=== PATIENT | male | born 1985 | race Two or more races ===

== ENCOUNTER 2019-08-02 14:31 | Inpatient (IN) | payer OTHER ==
[~2019-08-02] VITALS: Ht 165.1 cm; Wt 54.4 kg
[2019-08-02] MEDS ORDERED: ONDANSETRON HCL 4 MG/2 ML VIAL IVP PRN (15:00)
[2019-08-02] MEDS ORDERED: 0.9% SODIUM CHLORIDE 10 ML SYRINGE IVP PRN ×2 (15:00→22:00)
[2019-08-02] MEDS ORDERED: ACETAMINOPHEN 325 MG TABLET PO PRN (15:00)
[2019-08-02] MEDS ORDERED: HYDROCORTISONE 1% 30 GM OINTMENT TP ONE (15:00)
[2019-08-02] MEDS ORDERED: DiphenhydrAMINE HCL 25 MG CAPSULE PO ONE (15:00)
[2019-08-02 15:13] LABS: BASOPHILS % (AUTO) 0.1 % (0.0-2.0); EOSINOPHILS % (AUTO) 3.6 % (1.0-6.0); HEMATOCRIT 34.8 % (41-53); HEMOGLOBIN 11.6 g/dL (13.5-17.5); LYMPHOCYTES # (AUTO) 0.6 K/uL (1.0-4.8); LYMPHOCYTES % (AUTO) 11.6 % (22.0-44.0); MEAN CORPUSCULAR HEMOGLOBIN 27.7 pg (26.0-34.0); MEAN CORPUSCULAR HGB CONC 33.3 G/dL (31.0-37.0); MEAN CORPUSCULAR VOLUME 83 fL (80-100); MONOCYTES # (AUTO) 0.4 K/uL (0.1-1.0); NEUTROPHILS # (AUTO) 4.2 K/uL (1.8-7.7); NEUTROPHILS % (AUTO) 77.7 % (40.0-70.0); PLATELET COUNT (AUTO) 301 K/uL (150-450); RED BLOOD CELL COUNT(AUTO) 4.17 MIL/uL (4.50-5.90); RED CELL DISTRIBUTION WIDTH 15.7 % (11.5-14.5)
[2019-08-02 15:28] LABS: ANION GAP 6 mmol/L (8-16); CALCIUM, TOTAL 8.3 mg/dL (8.8-10.5); CARBON DIOXIDE 27 mmol/L (22-29); CHLORIDE 106 mmol/L (98-107); CREATININE 0.75 mg/dL (0.60-1.30); GLOMERULAR FILTR. RATE CALC > 60 mL/min (>60); GLUCOSE,RANDOM 82 mg/dL (70-110); POTASSIUM 3.7 mmol/L (3.5-5.1); SODIUM SERUM 139 mmol/L (136-145); UREA NITROGEN, BLOOD 5 mg/dL (7-18)
[2019-08-02 15:41] LABS: ALANINE AMINOTRANSFERASE 45 U/L (12-78); ALKALINE PHOSPHATASE 120 U/L (46-116); ASPARTATE AMINOTRANSFERASE 49 U/L (15-37); BILIRUBIN,TOTAL 0.3 mg/dL (0.1-1.0); TOTAL PROTEIN, SERUM 9.8 g/dL (6.4-8.2)
[2019-08-02 15:43] VITALS: BP 113/71
[2019-08-02] MEDS ORDERED: PNEUMOCOCCAL VACCINE POLYVALENT 0.5 ML VIAL [PPSV23] IM ONE (15:45)
[2019-08-02] MEDS ORDERED: INFLUENZA VIRUS VACCINE QVS 2019-20 (3YR+)/PF 60 MCG/0.5 ML SYRINGE IM ONE (15:45)
[2019-08-02 19:55] VITALS: BP 96/51
[2019-08-02] MEDS ORDERED: ZOLPIDEM TARTRATE 5 MG TABLET PO PRN (22:00)
[2019-08-02] MEDS: HEPARIN SODIUM,PORCINE 5,000 UNITS/ML VIAL SQ SCH (22:28)
[2019-08-02] MEDS: CIMETIDINE 400 MG TABLET PO SCH (22:29)
[2019-08-02] MEDS: SODIUM CHLORIDE 0.9% 1,000 ML IV SCH (22:30)
[2019-08-02 23:57] VITALS: BP 95/55
[2019-08-03 04:00] VITALS: BP 91/55
[2019-08-03 05:33] LABS: BASOPHILS % (AUTO) 0.5 % (0.0-2.0); EOSINOPHILS % (AUTO) 5.9 % (1.0-6.0); HEMATOCRIT 34.1 % (41-53); HEMOGLOBIN 11.3 g/dL (13.5-17.5); LYMPHOCYTES # (AUTO) 0.7 K/uL (1.0-4.8); LYMPHOCYTES % (AUTO) 11.1 % (22.0-44.0); MEAN CORPUSCULAR HEMOGLOBIN 27.6 pg (26.0-34.0); MEAN CORPUSCULAR HGB CONC 33.1 G/dL (31.0-37.0); MEAN CORPUSCULAR VOLUME 83 fL (80-100); MONOCYTES # (AUTO) 0.5 K/uL (0.1-1.0); MONOCYTES % (AUTO) 8.8 % (2.0-9.0); NEUTROPHILS # (AUTO) 4.4 K/uL (1.8-7.7); NEUTROPHILS % (AUTO) 73.7 % (40.0-70.0); PLATELET COUNT (AUTO) 279 K/uL (150-450); RED BLOOD CELL COUNT(AUTO) 4.09 MIL/uL (4.50-5.90)
[2019-08-03 05:49] LABS: ALANINE AMINOTRANSFERASE 41 U/L (12-78); ALBUMIN 2.8 g/dL (3.4-5.0); ALKALINE PHOSPHATASE 113 U/L (46-116); ANION GAP 4 mmol/L (8-16); ASPARTATE AMINOTRANSFERASE 48 U/L (15-37); BILIRUBIN,TOTAL 0.3 mg/dL (0.1-1.0); CALCIUM, TOTAL 8.1 mg/dL (8.8-10.5); CARBON DIOXIDE 25 mmol/L (22-29); CHLORIDE 107 mmol/L (98-107); CREATININE 0.73 mg/dL (0.60-1.30); GLOMERULAR FILTR. RATE CALC > 60 mL/min (>60); GLUCOSE,RANDOM 82 mg/dL (70-110); POTASSIUM 3.4 mmol/L (3.5-5.1); SODIUM SERUM 136 mmol/L (136-145); TOTAL PROTEIN, SERUM 9.3 g/dL (6.4-8.2); UREA NITROGEN, BLOOD 10 mg/dL (7-18)
[2019-08-03 07:35] VITALS: BP 104/62
[2019-08-03] MEDS: DOCUSATE SODIUM 100 MG CAPSULE PO SCH ×2 (08:30→20:52)
[2019-08-03] MEDS: HEPARIN SODIUM,PORCINE 5,000 UNITS/ML VIAL SQ SCH ×3 (08:30→23:59)
[2019-08-03] MEDS: CIMETIDINE 400 MG TABLET PO SCH ×2 (08:31→20:40)
[2019-08-03] MEDS ORDERED: POTASSIUM CHLORIDE 20 MEQ ER TABLET PO PRN (10:45)
[2019-08-03] MEDS ORDERED: POTASSIUM CHL 10 MEQ/WATER 50 ML IV PRN (10:45)
[2019-08-03] MEDS ORDERED: PredniSONE 5 MG TABLET PO ONE (11:00)
[2019-08-03 11:25] VITALS: BP 104/54
[2019-08-03] MEDS: SODIUM CHLORIDE 0.9% 1,000 ML IV SCH (12:36)
[2019-08-03 16:04] VITALS: BP 98/58
[2019-08-03 20:27] VITALS: BP 104/67
[2019-08-03] MEDS: ACETAMINOPHEN 325 MG TABLET PO PRN (20:44)
[2019-08-03 23:46] VITALS: BP 96/54
[2019-08-04] MEDS: SODIUM CHLORIDE 0.9% 1,000 ML IV SCH ×2 (02:36→18:45)
[2019-08-04 04:40] VITALS: BP 101/67
[2019-08-04 07:32] VITALS: BP 110/66
[2019-08-04] MEDS: HEPARIN SODIUM,PORCINE 5,000 UNITS/ML VIAL SQ SCH ×3 (08:53→23:59)
[2019-08-04] MEDS: DOCUSATE SODIUM 100 MG CAPSULE PO SCH ×2 (08:53→08:58)
[2019-08-04] MEDS: CIMETIDINE 400 MG TABLET PO SCH ×2 (08:55→20:11)
[2019-08-04 11:29] VITALS: BP 103/70
[2019-08-04 15:52] VITALS: BP 106/67
[2019-08-04 19:29] VITALS: BP 105/56
[2019-08-04] MEDS: BACITRACIN 28.4 GM OINTMENT TP SCH (20:07)
[2019-08-04 23:52] VITALS: BP 99/55
[2019-08-05] MEDS: ACETAMINOPHEN 325 MG TABLET PO PRN (04:06)
[2019-08-05 04:10] VITALS: BP 107/70
[2019-08-05] MEDS: HEPARIN SODIUM,PORCINE 5,000 UNITS/ML VIAL SQ SCH ×3 (08:31→23:18)
[2019-08-05] MEDS: CIMETIDINE 400 MG TABLET PO SCH ×2 (08:31→21:24)
[2019-08-05] MEDS: BACITRACIN 28.4 GM OINTMENT TP SCH ×2 (08:32→23:19)
[2019-08-05] MEDS: DOCUSATE SODIUM 100 MG CAPSULE PO SCH ×2 (08:33→21:00)
[2019-08-05] MEDS: SODIUM CHLORIDE 0.9% 1,000 ML IV SCH ×2 (09:29→23:18)
[2019-08-05 11:07] VITALS: BP 104/56
[2019-08-05 15:39] VITALS: BP 101/57
[2019-08-05] MEDS ORDERED: ACYCLOVIR 200 MG CAPSULE PO SCH (16:00)
[2019-08-05 20:10] VITALS: BP 115/59
[2019-08-05] MEDS: CETIRIZINE HCL 10 MG TABLET PO SCH (21:22)
[2019-08-05] MEDS: ACYCLOVIR 200 MG CAPSULE PO SCH (21:23)
[2019-08-05 22:48] VITALS: BP 120/85
[2019-08-06] MEDS: ACYCLOVIR 200 MG CAPSULE PO SCH ×5 (01:21→19:29)
[2019-08-06 04:00] VITALS: BP 118/82
[2019-08-06 07:32] VITALS: BP 114/64
[2019-08-06] MEDS: CETIRIZINE HCL 10 MG TABLET PO SCH (08:40)
[2019-08-06] MEDS: DOCUSATE SODIUM 100 MG CAPSULE PO SCH ×2 (08:40→21:07)
[2019-08-06] MEDS: HEPARIN SODIUM,PORCINE 5,000 UNITS/ML VIAL SQ SCH ×2 (08:40→16:54)
[2019-08-06] MEDS: BACITRACIN 28.4 GM OINTMENT TP SCH ×2 (08:41→21:07)
[2019-08-06] MEDS: CIMETIDINE 400 MG TABLET PO SCH ×2 (08:41→21:07)
[2019-08-06 11:59] VITALS: BP 115/68
[2019-08-06] MEDS: SODIUM CHLORIDE 0.9% 1,000 ML IV SCH (13:13)
[2019-08-06] MEDS ORDERED: PERMETHRIN 5% 60 GM CREAM TP ONE (16:00)
[2019-08-06 16:11] VITALS: BP 103/60
[2019-08-06 20:04] VITALS: BP 104/68
[2019-08-06 23:30] VITALS: BP 108/66
[2019-08-07] MEDS: ACYCLOVIR 200 MG CAPSULE PO SCH ×5 (00:04→18:47)
[2019-08-07] MEDS: HEPARIN SODIUM,PORCINE 5,000 UNITS/ML VIAL SQ SCH ×3 (00:04→16:08)
[2019-08-07 04:00] VITALS: BP 110/69
[2019-08-07] MEDS: SODIUM CHLORIDE 0.9% 1,000 ML IV SCH ×2 (04:58→18:47)
[2019-08-07] MEDS: ACETAMINOPHEN 325 MG TABLET PO PRN (05:02)
[2019-08-07 06:58] LABS: BASOPHILS % (AUTO) 0.2 % (0.0-2.0); EOSINOPHILS % (AUTO) 4.1 % (1.0-6.0); HEMATOCRIT 33.7 % (41-53); HEMOGLOBIN 11.3 g/dL (13.5-17.5); LYMPHOCYTES # (AUTO) 1.1 K/uL (1.0-4.8); LYMPHOCYTES % (AUTO) 19.1 % (22.0-44.0); MEAN CORPUSCULAR HEMOGLOBIN 27.9 pg (26.0-34.0); MEAN CORPUSCULAR HGB CONC 33.5 G/dL (31.0-37.0); MEAN CORPUSCULAR VOLUME 83 fL (80-100); MONOCYTES # (AUTO) 0.3 K/uL (0.1-1.0); MONOCYTES % (AUTO) 6.2 % (2.0-9.0); NEUTROPHILS % (AUTO) 70.4 % (40.0-70.0); PLATELET COUNT (AUTO) 318 K/uL (150-450); RED BLOOD CELL COUNT(AUTO) 4.05 MIL/uL (4.50-5.90); RED CELL DISTRIBUTION WIDTH 15.8 % (11.5-14.5)
[2019-08-07 07:31] LABS: ALANINE AMINOTRANSFERASE 90 U/L (12-78); ALBUMIN 2.8 g/dL (3.4-5.0); ALKALINE PHOSPHATASE 141 U/L (46-116); ANION GAP 9 mmol/L (8-16); ASPARTATE AMINOTRANSFERASE 116 U/L (15-37); BILIRUBIN,TOTAL 0.3 mg/dL (0.1-1.0); CALCIUM, TOTAL 8.1 mg/dL (8.8-10.5); CARBON DIOXIDE 22 mmol/L (22-29); CHLORIDE 103 mmol/L (98-107); CREATININE 0.87 mg/dL (0.60-1.30); GLOMERULAR FILTR. RATE CALC > 60 mL/min (>60); GLUCOSE,RANDOM 81 mg/dL (70-110); POTASSIUM 3.8 mmol/L (3.5-5.1); SODIUM SERUM 134 mmol/L (136-145); TOTAL PROTEIN, SERUM 9.6 g/dL (6.4-8.2); UREA NITROGEN, BLOOD 4 mg/dL (7-18)
[2019-08-07] MEDS: DOCUSATE SODIUM 100 MG CAPSULE PO SCH ×2 (07:52→20:40)
[2019-08-07] MEDS: CETIRIZINE HCL 10 MG TABLET PO SCH (07:53)
[2019-08-07] MEDS: CIMETIDINE 400 MG TABLET PO SCH ×2 (07:53→20:40)
[2019-08-07] MEDS: BACITRACIN 28.4 GM OINTMENT TP SCH ×2 (07:54→20:40)
[2019-08-07 08:01] LABS: APPEARANCE,URINE CLEAR (CLEAR); BILIRUBIN,URINE NEGATIVE (NEGATIVE); GLUCOSE, URINE (UA) NEGATIVE (NEGATIVE); KETONES,URINE NEGATIVE (NEGATIVE); LEUKOCYTE ESTERASE ,URINE NEGATIVE (NEGATIVE); NITRATE,URINE NEGATIVE (NEGATIVE); OCCULT BLOOD,URINE NEGATIVE (NEGATIVE); PROTEIN,URINE NEGATIVE (NEGATIVE); UROBILINOGEN,URINE 0.2 mg/dL (<=1.0)
[2019-08-07 08:44] VITALS: BP 107/63
[2019-08-07 11:35] VITALS: BP 105/62
[2019-08-07 16:30] VITALS: BP 104/61
[2019-08-07 21:06] VITALS: BP 104/57
[2019-08-08] VITALS (7 sets, daily range): BP systolic 100–120; BP diastolic 60–79
[2019-08-08] MEDS: ACYCLOVIR 200 MG CAPSULE PO SCH ×6 (00:10→23:21)
[2019-08-08] MEDS: HEPARIN SODIUM,PORCINE 5,000 UNITS/ML VIAL SQ SCH ×4 (00:10→23:21)
[2019-08-08] MEDS: TRIAMCINOLONE 0.1% 15 GM CREAM TP PRN ×2 (00:10→08:12)
[2019-08-08] MEDS: HydrOXYzine HCL 25 MG TABLET PO PRN (03:10)
[2019-08-08] MEDS: CETIRIZINE HCL 10 MG TABLET PO SCH (08:08)
[2019-08-08] MEDS: CIMETIDINE 400 MG TABLET PO SCH ×2 (08:08→20:20)
[2019-08-08] MEDS: DOCUSATE SODIUM 100 MG CAPSULE PO SCH ×3 (08:18→20:26)
[2019-08-08] MEDS: SODIUM CHLORIDE 0.9% 1,000 ML IV SCH ×2 (08:18→23:21)
[2019-08-08] MEDS: BACITRACIN 28.4 GM OINTMENT TP SCH ×2 (08:23→20:20)
[2019-08-08] MEDS: ACETAMINOPHEN 325 MG TABLET PO PRN (23:21)
[2019-08-09 04:33] VITALS: BP 105/68
[2019-08-09] MEDS: ACYCLOVIR 200 MG CAPSULE PO SCH ×5 (05:46→21:18)
[2019-08-09 06:37] LABS: BASOPHILS % (AUTO) 0.3 % (0.0-2.0); EOSINOPHILS % (AUTO) 10.1 % (1.0-6.0); HEMATOCRIT 33.8 % (41-53); HEMOGLOBIN 11.2 g/dL (13.5-17.5); LYMPHOCYTES # (AUTO) 0.8 K/uL (1.0-4.8); LYMPHOCYTES % (AUTO) 16.6 % (22.0-44.0); MEAN CORPUSCULAR HEMOGLOBIN 27.8 pg (26.0-34.0); MEAN CORPUSCULAR HGB CONC 33.1 G/dL (31.0-37.0); MEAN CORPUSCULAR VOLUME 84 fL (80-100); MONOCYTES # (AUTO) 0.4 K/uL (0.1-1.0); MONOCYTES % (AUTO) 9.1 % (2.0-9.0); NEUTROPHILS % (AUTO) 63.9 % (40.0-70.0); PLATELET COUNT (AUTO) 286 K/uL (150-450); RED BLOOD CELL COUNT(AUTO) 4.03 MIL/uL (4.50-5.90); RED CELL DISTRIBUTION WIDTH 15.7 % (11.5-14.5)
[2019-08-09 06:58] LABS: ALANINE AMINOTRANSFERASE 101 U/L (12-78); ALBUMIN 2.7 g/dL (3.4-5.0); ALKALINE PHOSPHATASE 155 U/L (46-116); ANION GAP 9 mmol/L (8-16); ASPARTATE AMINOTRANSFERASE 107 U/L (15-37); BILIRUBIN,TOTAL 0.2 mg/dL (0.1-1.0); CALCIUM, TOTAL 8.1 mg/dL (8.8-10.5); CARBON DIOXIDE 23 mmol/L (22-29); CHLORIDE 106 mmol/L (98-107); CREATININE 0.85 mg/dL (0.60-1.30); GLOMERULAR FILTR. RATE CALC > 60 mL/min (>60); GLUCOSE,RANDOM 73 mg/dL (70-110); POTASSIUM 3.8 mmol/L (3.5-5.1); SODIUM SERUM 138 mmol/L (136-145); TOTAL PROTEIN, SERUM 9.4 g/dL (6.4-8.2); UREA NITROGEN, BLOOD 5 mg/dL (7-18)
[2019-08-09 08:05] VITALS: BP 106/63
[2019-08-09] MEDS: HEPARIN SODIUM,PORCINE 5,000 UNITS/ML VIAL SQ SCH ×3 (08:43→23:10)
[2019-08-09] MEDS: DOCUSATE SODIUM 100 MG CAPSULE PO SCH ×2 (09:19→21:18)
[2019-08-09] MEDS: CIMETIDINE 400 MG TABLET PO SCH ×2 (09:20→21:18)
[2019-08-09] MEDS: CETIRIZINE HCL 10 MG TABLET PO SCH (09:20)
[2019-08-09] MEDS: BACITRACIN 28.4 GM OINTMENT TP SCH ×2 (09:25→21:24)
[2019-08-09] MEDS ORDERED: GADOBUTROL 1 MMOL/ML 10 ML VIAL IVP ONE (09:26)
[2019-08-09 11:03] VITALS: BP 103/60
[2019-08-09] MEDS: SODIUM CHLORIDE 0.9% 1,000 ML IV SCH (11:18)
[2019-08-09 15:22] VITALS: BP 101/69
[2019-08-09] MEDS ORDERED: TRIAMCINOLONE ACETONIDE 40 MG/ML VIAL IM ONE (19:45)
[2019-08-09] MEDS ORDERED: LIDOCAINE 1% 10 ML VIAL SQ ONE (19:45)
[2019-08-09] MEDS ORDERED: BUPIVACAINE HCL/PF 0.5% 10 ML VIAL SQ ONE (19:45)
[2019-08-09 19:56] VITALS: BP 102/56
[2019-08-09] MEDS ORDERED: GABAPENTIN 100 MG CAPSULE PO SCH (21:00)
[2019-08-09 23:06] VITALS: BP 108/65
[2019-08-10] MEDS: SODIUM CHLORIDE 0.9% 1,000 ML IV SCH ×2 (04:07→17:41)
[2019-08-10 04:33] VITALS: BP 105/63
[2019-08-10 05:41] LABS: BASOPHILS % (AUTO) 0.3 % (0.0-2.0); EOSINOPHILS % (AUTO) 7.9 % (1.0-6.0); HEMATOCRIT 34.8 % (41-53); HEMOGLOBIN 11.5 g/dL (13.5-17.5); LYMPHOCYTES # (AUTO) 0.9 K/uL (1.0-4.8); LYMPHOCYTES % (AUTO) 14.6 % (22.0-44.0); MEAN CORPUSCULAR HEMOGLOBIN 27.5 pg (26.0-34.0); MEAN CORPUSCULAR HGB CONC 33.2 G/dL (31.0-37.0); MEAN CORPUSCULAR VOLUME 83 fL (80-100); MONOCYTES # (AUTO) 0.5 K/uL (0.1-1.0); MONOCYTES % (AUTO) 7.9 % (2.0-9.0); NEUTROPHILS # (AUTO) 4.5 K/uL (1.8-7.7); NEUTROPHILS % (AUTO) 69.3 % (40.0-70.0); PLATELET COUNT (AUTO) 312 K/uL (150-450); RED CELL DISTRIBUTION WIDTH 15.8 % (11.5-14.5)
[2019-08-10 05:55] LABS: ANION GAP 10 mmol/L (8-16); CALCIUM, TOTAL 7.9 mg/dL (8.8-10.5); CARBON DIOXIDE 22 mmol/L (22-29); CHLORIDE 105 mmol/L (98-107); CREATININE 0.79 mg/dL (0.60-1.30); GLOMERULAR FILTR. RATE CALC > 60 mL/min (>60); GLUCOSE,RANDOM 74 mg/dL (70-110); SODIUM SERUM 137 mmol/L (136-145); UREA NITROGEN, BLOOD 5 mg/dL (7-18)
[2019-08-10] MEDS: ACYCLOVIR 200 MG CAPSULE PO SCH ×5 (06:06→22:12)
[2019-08-10 07:30] VITALS: BP 107/70
[2019-08-10] MEDS: DOCUSATE SODIUM 100 MG CAPSULE PO SCH ×3 (08:16→20:11)
[2019-08-10] MEDS: CIMETIDINE 400 MG TABLET PO SCH ×2 (08:17→20:11)
[2019-08-10] MEDS: HEPARIN SODIUM,PORCINE 5,000 UNITS/ML VIAL SQ SCH ×3 (08:17→23:48)
[2019-08-10] MEDS: CETIRIZINE HCL 10 MG TABLET PO SCH (08:17)
[2019-08-10] MEDS: BACITRACIN 28.4 GM OINTMENT TP SCH ×2 (08:18→20:12)
[2019-08-10 11:50] VITALS: BP 104/70
[2019-08-10 12:33] LABS: GLUCOSE, CSF 43 mg/dL (50-80); TOTAL PROTEIN, CSF 36 mg/dL (15-45)
[2019-08-10 13:14] LABS: APPEARANCE,CSF CLEAR (CLEAR); COLOR,CSF COLORLESS (COLORLESS); CSF TUBE NUMBER 1; LYMPHOCYTES1,CSF 70 %; NEUTROPHILS1,CSF 10 %
[2019-08-10 13:15] LABS: APPEARANCE2,CSF CLEAR (CLEAR); COLOR2,CSF COLORLESS (COLORLESS); CSF 2ND TUBE NUMBER 4; LYMPHOCYTES2,CSF 100 %; MONOCYTES1,CSF 20 %; MONOCYTES2,CSF 0 %; NEUTROPHILS2,CSF 0 %; OTHER CELLS,CSF 2ND 0
[2019-08-10 15:30] VITALS: BP 104/72
[2019-08-10] MEDS: PENICILLIN G POTASSIUM 4 MILUNITS in DEXTROSE 5%-WATER 100 ML IV SCH ×2 (17:41→22:12)
[2019-08-10 19:45] VITALS: BP 125/66
[2019-08-10] MEDS: GABAPENTIN 300 MG CAPSULE PO SCH (20:11)
[2019-08-10] MEDS: ACETAMINOPHEN 325 MG TABLET PO PRN (20:12)
[2019-08-10] MEDS: HydrOXYzine HCL 25 MG TABLET PO PRN (20:12)
[2019-08-10 23:36] VITALS: BP 103/53
[2019-08-11] MEDS: PENICILLIN G POTASSIUM 4 MILUNITS in DEXTROSE 5%-WATER 100 ML IV SCH ×6 (02:23→21:49)
[2019-08-11 04:46] VITALS: BP 100/57
[2019-08-11] MEDS: ACYCLOVIR 200 MG CAPSULE PO SCH ×5 (05:35→21:49)
[2019-08-11] MEDS: ACETAMINOPHEN 325 MG TABLET PO PRN ×2 (05:36→14:06)
[2019-08-11 07:39] LABS: BASOPHILS % (AUTO) 0.2 % (0.0-2.0); EOSINOPHILS % (AUTO) 1.9 % (1.0-6.0); HEMATOCRIT 32.4 % (41-53); HEMOGLOBIN 10.9 g/dL (13.5-17.5); LYMPHOCYTES # (AUTO) 0.7 K/uL (1.0-4.8); LYMPHOCYTES % (AUTO) 10.3 % (22.0-44.0); MEAN CORPUSCULAR HEMOGLOBIN 27.5 pg (26.0-34.0); MEAN CORPUSCULAR HGB CONC 33.5 G/dL (31.0-37.0); MEAN CORPUSCULAR VOLUME 82 fL (80-100); MONOCYTES # (AUTO) 0.4 K/uL (0.1-1.0); MONOCYTES % (AUTO) 5.6 % (2.0-9.0); NEUTROPHILS # (AUTO) 5.8 K/uL (1.8-7.7); PLATELET COUNT (AUTO) 303 K/uL (150-450); RED BLOOD CELL COUNT(AUTO) 3.94 MIL/uL (4.50-5.90); RED CELL DISTRIBUTION WIDTH 15.5 % (11.5-14.5)
[2019-08-11 07:41] VITALS: BP 100/56
[2019-08-11 07:48] LABS: ANION GAP 8 mmol/L (8-16); CALCIUM, TOTAL 7.7 mg/dL (8.8-10.5); CARBON DIOXIDE 25 mmol/L (22-29); CHLORIDE 101 mmol/L (98-107); CREATININE 0.94 mg/dL (0.60-1.30); GLOMERULAR FILTR. RATE CALC > 60 mL/min (>60); GLUCOSE,RANDOM 91 mg/dL (70-110); POTASSIUM 3.8 mmol/L (3.5-5.1); SODIUM SERUM 134 mmol/L (136-145)
[2019-08-11 08:00] LABS: UREA NITROGEN, BLOOD 8 mg/dL (7-18)
[2019-08-11] MEDS: HEPARIN SODIUM,PORCINE 5,000 UNITS/ML VIAL SQ SCH ×3 (08:06→23:40)
[2019-08-11] MEDS: CETIRIZINE HCL 10 MG TABLET PO SCH (08:06)
[2019-08-11] MEDS: MULTIVITAMINS WITH MINERALS, THERAPEUTIC TABLET PO SCH (08:06)
[2019-08-11] MEDS: DOCUSATE SODIUM 100 MG CAPSULE PO SCH ×2 (08:06→20:19)
[2019-08-11] MEDS: CIMETIDINE 400 MG TABLET PO SCH ×2 (08:06→20:20)
[2019-08-11] MEDS: TraMADol HCL 50 MG TABLET PO PRN ×2 (08:06→14:06)
[2019-08-11] MEDS: BACITRACIN 28.4 GM OINTMENT TP SCH ×2 (08:10→20:20)
[2019-08-11 11:15] VITALS: BP 96/59
[2019-08-11 15:20] VITALS: BP 104/57
[2019-08-11 20:03] VITALS: BP 111/60
[2019-08-11] MEDS: GABAPENTIN 300 MG CAPSULE PO SCH (20:20)
[2019-08-11 22:53] LABS: APPEARANCE,URINE CLEAR (CLEAR); BILIRUBIN,URINE NEGATIVE (NEGATIVE); GLUCOSE, URINE (UA) NEGATIVE (NEGATIVE); KETONES,URINE NEGATIVE (NEGATIVE); LEUKOCYTE ESTERASE ,URINE NEGATIVE (NEGATIVE); NITRATE,URINE NEGATIVE (NEGATIVE); OCCULT BLOOD,URINE NEGATIVE (NEGATIVE); PH,URINE 6.5 (5.0-8.0); PROTEIN,URINE NEGATIVE (NEGATIVE)
[2019-08-11 23:04] LABS: BACTERIA,URINE None Seen /HPF (None Seen); RBC,URINE None Seen /HPF (0-2); SQUAMOUS EPITHELIAL CELL,UR None Seen /LPF (None Seen); WBC,URINE 0-2 /HPF (0-5)
[2019-08-11] MEDS: SODIUM CHLORIDE 0.9% 1,000 ML IV SCH (23:40)
[2019-08-12] VITALS (7 sets, daily range): BP systolic 91–108; BP diastolic 51–62
[2019-08-12] MEDS: PENICILLIN G POTASSIUM 4 MILUNITS in DEXTROSE 5%-WATER 100 ML IV SCH ×6 (01:51→21:41)
[2019-08-12] MEDS: TraMADol HCL 50 MG TABLET PO PRN ×3 (01:55→17:47)
[2019-08-12] MEDS: ACETAMINOPHEN 325 MG TABLET PO PRN (05:57)
[2019-08-12] MEDS: DOCUSATE SODIUM 100 MG CAPSULE PO SCH ×2 (07:42→20:10)
[2019-08-12] MEDS: MULTIVITAMINS WITH MINERALS, THERAPEUTIC TABLET PO SCH (07:42)
[2019-08-12] MEDS: ACYCLOVIR 200 MG CAPSULE PO SCH ×5 (07:43→21:41)
[2019-08-12] MEDS: CIMETIDINE 400 MG TABLET PO SCH ×2 (07:43→20:10)
[2019-08-12] MEDS: HEPARIN SODIUM,PORCINE 5,000 UNITS/ML VIAL SQ SCH ×2 (07:43→16:05)
[2019-08-12] MEDS: CETIRIZINE HCL 10 MG TABLET PO SCH (07:44)
[2019-08-12 07:45] LABS: BASOPHILS % (AUTO) 0.3 % (0.0-2.0); EOSINOPHILS % (AUTO) 4.2 % (1.0-6.0); HEMATOCRIT 31.7 % (41-53); HEMOGLOBIN 10.6 g/dL (13.5-17.5); LYMPHOCYTES # (AUTO) 0.9 K/uL (1.0-4.8); LYMPHOCYTES % (AUTO) 14.6 % (22.0-44.0); MEAN CORPUSCULAR HEMOGLOBIN 27.7 pg (26.0-34.0); MEAN CORPUSCULAR HGB CONC 33.5 G/dL (31.0-37.0); MEAN CORPUSCULAR VOLUME 83 fL (80-100); MONOCYTES # (AUTO) 0.3 K/uL (0.1-1.0); MONOCYTES % (AUTO) 5.3 % (2.0-9.0); NEUTROPHILS # (AUTO) 4.4 K/uL (1.8-7.7); NEUTROPHILS % (AUTO) 75.6 % (40.0-70.0); PLATELET COUNT (AUTO) 313 K/uL (150-450); RED BLOOD CELL COUNT(AUTO) 3.84 MIL/uL (4.50-5.90); RED CELL DISTRIBUTION WIDTH 15.5 % (11.5-14.5)
[2019-08-12 08:03] LABS: ANION GAP 6 mmol/L (8-16); CALCIUM, TOTAL 7.9 mg/dL (8.8-10.5); CARBON DIOXIDE 25 mmol/L (22-29); CHLORIDE 100 mmol/L (98-107); CREATININE 0.68 mg/dL (0.60-1.30); GLOMERULAR FILTR. RATE CALC > 60 mL/min (>60); GLUCOSE,RANDOM 77 mg/dL (70-110); SODIUM SERUM 131 mmol/L (136-145)
[2019-08-12 08:27] LABS: UREA NITROGEN, BLOOD 6 mg/dL (7-18)
[2019-08-12] MEDS: BACITRACIN 28.4 GM OINTMENT TP SCH (10:28)
[2019-08-12] MEDS: SODIUM CHLORIDE 0.9% 1,000 ML IV SCH (10:48)
[2019-08-12] MEDS: ONDANSETRON HCL 4 MG/2 ML VIAL IVP PRN (14:49)
[2019-08-12] MEDS: GABAPENTIN 300 MG CAPSULE PO SCH (20:10)
[2019-08-13] MEDS: HEPARIN SODIUM,PORCINE 5,000 UNITS/ML VIAL SQ SCH ×4 (00:04→23:56)
[2019-08-13] MEDS: SODIUM CHLORIDE 0.9% 1,000 ML IV SCH ×2 (01:14→19:00)
[2019-08-13] MEDS: PENICILLIN G POTASSIUM 4 MILUNITS in DEXTROSE 5%-WATER 100 ML IV SCH ×6 (02:07→21:49)
[2019-08-13 04:55] VITALS: BP 96/56
[2019-08-13] MEDS: ACYCLOVIR 200 MG CAPSULE PO SCH ×3 (05:48→14:09)
[2019-08-13] MEDS: TraMADol HCL 50 MG TABLET PO PRN ×2 (05:50→20:26)
[2019-08-13 06:15] LABS: BASOPHILS % (AUTO) 0.7 % (0.0-2.0); EOSINOPHILS % (AUTO) 6.7 % (1.0-6.0); HEMATOCRIT 32.6 % (41-53); HEMOGLOBIN 10.8 g/dL (13.5-17.5); LYMPHOCYTES % (AUTO) 29.8 % (22.0-44.0); MEAN CORPUSCULAR HEMOGLOBIN 27.6 pg (26.0-34.0); MEAN CORPUSCULAR HGB CONC 33.2 G/dL (31.0-37.0); MEAN CORPUSCULAR VOLUME 83 fL (80-100); MONOCYTES # (AUTO) 0.4 K/uL (0.1-1.0); MONOCYTES % (AUTO) 11.2 % (2.0-9.0); NEUTROPHILS # (AUTO) 1.8 K/uL (1.8-7.7); NEUTROPHILS % (AUTO) 51.6 % (40.0-70.0); PLATELET COUNT (AUTO) 356 K/uL (150-450); RED BLOOD CELL COUNT(AUTO) 3.92 MIL/uL (4.50-5.90); RED CELL DISTRIBUTION WIDTH 15.9 % (11.5-14.5)
[2019-08-13 06:35] LABS: ALANINE AMINOTRANSFERASE 80 U/L (12-78); ALBUMIN 2.7 g/dL (3.4-5.0); ALKALINE PHOSPHATASE 122 U/L (46-116); ANION GAP 8 mmol/L (8-16); ASPARTATE AMINOTRANSFERASE 74 U/L (15-37); BILIRUBIN,TOTAL 0.2 mg/dL (0.1-1.0); CALCIUM, TOTAL 8.1 mg/dL (8.8-10.5); CARBON DIOXIDE 25 mmol/L (22-29); CHLORIDE 101 mmol/L (98-107); GLOMERULAR FILTR. RATE CALC > 60 mL/min (>60); GLUCOSE,RANDOM 77 mg/dL (70-110); SODIUM SERUM 134 mmol/L (136-145); TOTAL PROTEIN, SERUM 9.6 g/dL (6.4-8.2); UREA NITROGEN, BLOOD 4 mg/dL (7-18)
[2019-08-13 08:21] VITALS: BP 96/56
[2019-08-13] MEDS: DOCUSATE SODIUM 100 MG CAPSULE PO SCH ×2 (08:42→20:26)
[2019-08-13] MEDS: CIMETIDINE 400 MG TABLET PO SCH ×2 (08:53→20:27)
[2019-08-13] MEDS: MULTIVITAMINS WITH MINERALS, THERAPEUTIC TABLET PO SCH (08:53)
[2019-08-13 11:53] VITALS: BP 96/62
[2019-08-13 15:42] VITALS: BP 98/61
[2019-08-13 20:00] VITALS: BP 91/56
[2019-08-13] MEDS: GABAPENTIN 300 MG CAPSULE PO SCH (20:26)
[2019-08-14] VITALS (7 sets, daily range): BP systolic 84–99; BP diastolic 51–63
[2019-08-14] MEDS: PENICILLIN G POTASSIUM 4 MILUNITS in DEXTROSE 5%-WATER 100 ML IV SCH ×6 (02:07→22:15)
[2019-08-14 05:57] LABS: BASOPHILS % (AUTO) 0.4 % (0.0-2.0); EOSINOPHILS % (AUTO) 8.7 % (1.0-6.0); HEMATOCRIT 33.4 % (41-53); HEMOGLOBIN 11.2 g/dL (13.5-17.5); LYMPHOCYTES # (AUTO) 1.5 K/uL (1.0-4.8); LYMPHOCYTES % (AUTO) 32.3 % (22.0-44.0); MEAN CORPUSCULAR HEMOGLOBIN 27.7 pg (26.0-34.0); MEAN CORPUSCULAR HGB CONC 33.6 G/dL (31.0-37.0); MEAN CORPUSCULAR VOLUME 83 fL (80-100); MONOCYTES # (AUTO) 0.5 K/uL (0.1-1.0); MONOCYTES % (AUTO) 10.5 % (2.0-9.0); NEUTROPHILS # (AUTO) 2.2 K/uL (1.8-7.7); NEUTROPHILS % (AUTO) 48.1 % (40.0-70.0); PLATELET COUNT (AUTO) 380 K/uL (150-450); RED BLOOD CELL COUNT(AUTO) 4.04 MIL/uL (4.50-5.90); RED CELL DISTRIBUTION WIDTH 15.8 % (11.5-14.5)
[2019-08-14 06:08] LABS: ANION GAP 8 mmol/L (8-16); CARBON DIOXIDE 25 mmol/L (22-29); CHLORIDE 102 mmol/L (98-107); CREATININE 0.76 mg/dL (0.60-1.30); GLOMERULAR FILTR. RATE CALC > 60 mL/min (>60); GLUCOSE,RANDOM 75 mg/dL (70-110); POTASSIUM 3.9 mmol/L (3.5-5.1); SODIUM SERUM 135 mmol/L (136-145); UREA NITROGEN, BLOOD 5 mg/dL (7-18)
[2019-08-14] MEDS: DOCUSATE SODIUM 100 MG CAPSULE PO SCH ×2 (08:44→20:20)
[2019-08-14] MEDS: CIMETIDINE 400 MG TABLET PO SCH ×2 (08:44→20:20)
[2019-08-14] MEDS: MULTIVITAMINS WITH MINERALS, THERAPEUTIC TABLET PO SCH (08:44)
[2019-08-14] MEDS: HEPARIN SODIUM,PORCINE 5,000 UNITS/ML VIAL SQ SCH ×3 (08:45→23:40)
[2019-08-14] MEDS: ONDANSETRON HCL 4 MG/2 ML VIAL IVP PRN (10:53)
[2019-08-14] MEDS: ACETAMINOPHEN 325 MG TABLET PO PRN ×3 (11:04→23:42)
[2019-08-14] MEDS: SODIUM CHLORIDE 0.9% 1,000 ML IV SCH (15:10)
[2019-08-14 18:05] LABS: OVA AND PARASITES EXAM Final report
[2019-08-14] MEDS: GABAPENTIN 300 MG CAPSULE PO SCH (20:20)
[2019-08-15] MEDS: PENICILLIN G POTASSIUM 4 MILUNITS in DEXTROSE 5%-WATER 100 ML IV SCH ×6 (02:00→22:37)
[2019-08-15 05:10] VITALS: BP 92/52
[2019-08-15 06:18] LABS: BASOPHILS % (AUTO) 0.7 % (0.0-2.0); EOSINOPHILS % (AUTO) 9.8 % (1.0-6.0); HEMATOCRIT 33.3 % (41-53); HEMOGLOBIN 11.3 g/dL (13.5-17.5); LYMPHOCYTES # (AUTO) 0.9 K/uL (1.0-4.8); LYMPHOCYTES % (AUTO) 24.6 % (22.0-44.0); MEAN CORPUSCULAR HEMOGLOBIN 27.9 pg (26.0-34.0); MEAN CORPUSCULAR HGB CONC 33.8 G/dL (31.0-37.0); MEAN CORPUSCULAR VOLUME 83 fL (80-100); MONOCYTES # (AUTO) 0.4 K/uL (0.1-1.0); MONOCYTES % (AUTO) 10.8 % (2.0-9.0); NEUTROPHILS # (AUTO) 2.1 K/uL (1.8-7.7); NEUTROPHILS % (AUTO) 54.1 % (40.0-70.0); PLATELET COUNT (AUTO) 407 K/uL (150-450); RED BLOOD CELL COUNT(AUTO) 4.04 MIL/uL (4.50-5.90); RED CELL DISTRIBUTION WIDTH 15.6 % (11.5-14.5)
[2019-08-15 06:40] LABS: ANION GAP 6 mmol/L (8-16); CALCIUM, TOTAL 8.1 mg/dL (8.8-10.5); CARBON DIOXIDE 26 mmol/L (22-29); CHLORIDE 104 mmol/L (98-107); CREATININE 0.81 mg/dL (0.60-1.30); GLOMERULAR FILTR. RATE CALC > 60 mL/min (>60); GLUCOSE,RANDOM 72 mg/dL (70-110); POTASSIUM 3.9 mmol/L (3.5-5.1); SODIUM SERUM 136 mmol/L (136-145); UREA NITROGEN, BLOOD 6 mg/dL (7-18)
[2019-08-15 07:36] VITALS: BP 98/61
[2019-08-15] MEDS: SODIUM CHLORIDE 0.9% 1,000 ML IV SCH ×2 (09:28→22:37)
[2019-08-15] MEDS: CIMETIDINE 400 MG TABLET PO SCH ×2 (09:29→20:32)
[2019-08-15] MEDS: HEPARIN SODIUM,PORCINE 5,000 UNITS/ML VIAL SQ SCH ×3 (09:29→22:37)
[2019-08-15] MEDS: DOCUSATE SODIUM 100 MG CAPSULE PO SCH ×2 (09:29→21:00)
[2019-08-15] MEDS: MULTIVITAMINS WITH MINERALS, THERAPEUTIC TABLET PO SCH (09:31)
[2019-08-15 11:43] VITALS: BP 94/65
[2019-08-15] MEDS: TraMADol HCL 50 MG TABLET PO PRN ×2 (14:07→20:33)
[2019-08-15] MEDS ORDERED: SODIUM CHLORIDE 0.9% 500 ML IV ONE (14:45)
[2019-08-15 16:10] VITALS: BP 98/61
[2019-08-15 20:09] VITALS: BP 92/52
[2019-08-15] MEDS: GABAPENTIN 300 MG CAPSULE PO SCH (20:32)
[2019-08-16 00:09] VITALS: BP 91/51
[2019-08-16] MEDS: PENICILLIN G POTASSIUM 4 MILUNITS in DEXTROSE 5%-WATER 100 ML IV SCH ×6 (02:20→22:22)
[2019-08-16 05:45] VITALS: BP 94/54
[2019-08-16 07:41] VITALS: BP 105/61
[2019-08-16] MEDS: HEPARIN SODIUM,PORCINE 5,000 UNITS/ML VIAL SQ SCH ×2 (07:55→16:04)
[2019-08-16] MEDS: ACETAMINOPHEN 325 MG TABLET PO PRN (07:55)
[2019-08-16] MEDS: MULTIVITAMINS WITH MINERALS, THERAPEUTIC TABLET PO SCH (07:55)
[2019-08-16] MEDS: DOCUSATE SODIUM 100 MG CAPSULE PO SCH ×2 (07:55→19:59)
[2019-08-16] MEDS: CIMETIDINE 400 MG TABLET PO SCH ×2 (07:55→20:00)
[2019-08-16 11:33] VITALS: BP 104/52
[2019-08-16 15:31] VITALS: BP 102/55
[2019-08-16] MEDS: SODIUM CHLORIDE 0.9% 1,000 ML IV SCH (16:08)
[2019-08-16] MEDS: HydrOXYzine HCL 25 MG TABLET PO PRN ×2 (18:36→20:00)
[2019-08-16] MEDS: TRIAMCINOLONE 0.1% 15 GM CREAM TP PRN (18:38)
[2019-08-16] MEDS: GABAPENTIN 300 MG CAPSULE PO SCH (19:59)
[2019-08-16 20:13] VITALS: BP 94/58
[2019-08-17] MEDS: HEPARIN SODIUM,PORCINE 5,000 UNITS/ML VIAL SQ SCH ×4 (00:10→23:58)
[2019-08-17 01:04] VITALS: BP 104/63
[2019-08-17] MEDS: PENICILLIN G POTASSIUM 4 MILUNITS in DEXTROSE 5%-WATER 100 ML IV SCH ×6 (03:35→22:38)
[2019-08-17 05:40] VITALS: BP 99/61
[2019-08-17 06:20] LABS: BASOPHILS % (AUTO) 0.6 % (0.0-2.0); EOSINOPHILS % (AUTO) 7.6 % (1.0-6.0); HEMATOCRIT 34.5 % (41-53); HEMOGLOBIN 11.6 g/dL (13.5-17.5); LYMPHOCYTES % (AUTO) 20.4 % (22.0-44.0); MEAN CORPUSCULAR HEMOGLOBIN 28.2 pg (26.0-34.0); MEAN CORPUSCULAR HGB CONC 33.7 G/dL (31.0-37.0); MEAN CORPUSCULAR VOLUME 84 fL (80-100); MONOCYTES # (AUTO) 0.5 K/uL (0.1-1.0); MONOCYTES % (AUTO) 10.5 % (2.0-9.0); NEUTROPHILS # (AUTO) 2.9 K/uL (1.8-7.7); NEUTROPHILS % (AUTO) 60.9 % (40.0-70.0); PLATELET COUNT (AUTO) 433 K/uL (150-450); RED BLOOD CELL COUNT(AUTO) 4.12 MIL/uL (4.50-5.90); RED CELL DISTRIBUTION WIDTH 16.4 % (11.5-14.5)
[2019-08-17 06:45] LABS: ALANINE AMINOTRANSFERASE 96 U/L (12-78); ALBUMIN 2.9 g/dL (3.4-5.0); ALKALINE PHOSPHATASE 111 U/L (46-116); ANION GAP 5 mmol/L (8-16); ASPARTATE AMINOTRANSFERASE 86 U/L (15-37); BILIRUBIN,TOTAL 0.2 mg/dL (0.1-1.0); CALCIUM, TOTAL 8.1 mg/dL (8.8-10.5); CARBON DIOXIDE 26 mmol/L (22-29); CHLORIDE 105 mmol/L (98-107); CREATININE 0.82 mg/dL (0.60-1.30); GLOMERULAR FILTR. RATE CALC > 60 mL/min (>60); GLUCOSE,RANDOM 72 mg/dL (70-110); POTASSIUM 3.9 mmol/L (3.5-5.1); SODIUM SERUM 136 mmol/L (136-145); TOTAL PROTEIN, SERUM 9.3 g/dL (6.4-8.2); UREA NITROGEN, BLOOD 6 mg/dL (7-18)
[2019-08-17] MEDS: MULTIVITAMINS WITH MINERALS, THERAPEUTIC TABLET PO SCH (08:30)
[2019-08-17 08:57] VITALS: BP 95/49
[2019-08-17] MEDS: DOCUSATE SODIUM 100 MG CAPSULE PO SCH ×2 (09:00→20:19)
[2019-08-17] MEDS: CIMETIDINE 400 MG TABLET PO SCH ×2 (09:00→20:20)
[2019-08-17 12:34] VITALS: BP 99/65
[2019-08-17] MEDS: SODIUM CHLORIDE 0.9% 1,000 ML IV SCH ×2 (15:43→19:30)
[2019-08-17 16:39] VITALS: BP 92/53
[2019-08-17] MEDS: TraMADol HCL 50 MG TABLET PO PRN (20:19)
[2019-08-17] MEDS: GABAPENTIN 300 MG CAPSULE PO SCH (20:19)
[2019-08-17 20:28] VITALS: BP 100/54
[2019-08-17] MEDS: HydrOXYzine HCL 25 MG TABLET PO PRN (20:29)
[2019-08-18] MEDS: PENICILLIN G POTASSIUM 4 MILUNITS in DEXTROSE 5%-WATER 100 ML IV SCH ×6 (02:00→22:07)
[2019-08-18 04:41] VITALS: BP 101/54
[2019-08-18] MEDS: HEPARIN SODIUM,PORCINE 5,000 UNITS/ML VIAL SQ SCH ×4 (08:00→23:21)
[2019-08-18 08:04] VITALS: BP 101/57
[2019-08-18] MEDS: MULTIVITAMINS WITH MINERALS, THERAPEUTIC TABLET PO SCH (08:36)
[2019-08-18] MEDS: DOCUSATE SODIUM 100 MG CAPSULE PO SCH ×2 (08:36→20:30)
[2019-08-18] MEDS: CIMETIDINE 400 MG TABLET PO SCH ×2 (08:36→23:18)
[2019-08-18] MEDS: SODIUM CHLORIDE 0.9% 1,000 ML IV SCH (08:42)
[2019-08-18 11:25] VITALS: BP 96/55
[2019-08-18 16:06] VITALS: BP 108/46
[2019-08-18 19:35] VITALS: BP 91/51
[2019-08-18] MEDS: HydrOXYzine HCL 25 MG TABLET PO PRN (20:30)
[2019-08-18] MEDS: GABAPENTIN 300 MG CAPSULE PO SCH (20:31)
[2019-08-19 00:02] VITALS: BP 99/64
[2019-08-19] MEDS: PENICILLIN G POTASSIUM 4 MILUNITS in DEXTROSE 5%-WATER 100 ML IV SCH ×6 (01:59→21:58)
[2019-08-19 05:10] VITALS: BP 101/61
[2019-08-19] MEDS: DOCUSATE SODIUM 100 MG CAPSULE PO SCH ×2 (07:44→20:15)
[2019-08-19] MEDS: MULTIVITAMINS WITH MINERALS, THERAPEUTIC TABLET PO SCH (07:44)
[2019-08-19] MEDS: CIMETIDINE 400 MG TABLET PO SCH ×2 (07:44→21:58)
[2019-08-19 07:46] VITALS: BP 105/54
[2019-08-19] MEDS: HEPARIN SODIUM,PORCINE 5,000 UNITS/ML VIAL SQ SCH ×3 (07:47→23:24)
[2019-08-19 11:18] VITALS: BP 103/59
[2019-08-19] MEDS: SODIUM CHLORIDE 0.9% 1,000 ML IV SCH (15:09)
[2019-08-19 15:26] VITALS: BP 113/84
[2019-08-19] MEDS: VIT E ACET/GLY/DIMETH/WATER 236 ML LOTION TP SCH ×2 (17:20→20:16)
[2019-08-19 19:54] VITALS: BP 95/83
[2019-08-19] MEDS: GABAPENTIN 300 MG CAPSULE PO SCH (20:15)
[2019-08-20] MEDS: PENICILLIN G POTASSIUM 4 MILUNITS in DEXTROSE 5%-WATER 100 ML IV SCH ×3 (02:14→09:34)
[2019-08-20 05:28] VITALS: BP 101/61
[2019-08-20] MEDS: SODIUM CHLORIDE 0.9% 1,000 ML IV SCH ×2 (06:12→23:17)
[2019-08-20 07:30] VITALS: BP 101/64
[2019-08-20] MEDS: HEPARIN SODIUM,PORCINE 5,000 UNITS/ML VIAL SQ SCH ×3 (08:00→23:06)
[2019-08-20] MEDS: CIMETIDINE 400 MG TABLET PO SCH ×2 (08:50→20:42)
[2019-08-20] MEDS: MULTIVITAMINS WITH MINERALS, THERAPEUTIC TABLET PO SCH (08:50)
[2019-08-20] MEDS: DOCUSATE SODIUM 100 MG CAPSULE PO SCH ×2 (08:50→20:42)
[2019-08-20] MEDS: SULFAMETHOX/TRIMETH DS 800-160 MG/TABLET PO SCH (08:50)
[2019-08-20] MEDS: VIT E ACET/GLY/DIMETH/WATER 236 ML LOTION TP SCH ×2 (09:34→20:42)
[2019-08-20 11:37] VITALS: BP 103/64
[2019-08-20] MEDS ORDERED: SUMAtriptan SUCCINATE 25 MG TABLET PO PRN (12:15)
[2019-08-20] MEDS ORDERED: PENICILLIN G BENZATHINE LA 2,400,000 UNITS/4 ML SYRINGE IM ONE (13:00)
[2019-08-20 15:04] VITALS: BP 104/64
[2019-08-20 20:12] VITALS: BP 90/63
[2019-08-20] MEDS: GABAPENTIN 300 MG CAPSULE PO SCH (20:42)
[2019-08-20 23:19] VITALS: BP 100/63
[2019-08-21 04:00] VITALS: BP 105/64
[2019-08-21 07:30] VITALS: BP 95/53
[2019-08-21] MEDS: HEPARIN SODIUM,PORCINE 5,000 UNITS/ML VIAL SQ SCH ×2 (08:18→16:12)
[2019-08-21] MEDS: SULFAMETHOX/TRIMETH DS 800-160 MG/TABLET PO SCH (08:26)
[2019-08-21] MEDS: MULTIVITAMINS WITH MINERALS, THERAPEUTIC TABLET PO SCH (08:26)
[2019-08-21] MEDS: CIMETIDINE 400 MG TABLET PO SCH ×2 (08:26→20:04)
[2019-08-21] MEDS: DOCUSATE SODIUM 100 MG CAPSULE PO SCH ×2 (08:27→20:04)
[2019-08-21] MEDS: VIT E ACET/GLY/DIMETH/WATER 236 ML LOTION TP SCH ×2 (08:28→20:05)
[2019-08-21] MEDS ORDERED: BACTDSB PO (11:37)
[2019-08-21] MEDS ORDERED: EMOL473L2 TP (11:38)
[2019-08-21] MEDS ORDERED: GABA-531 PO (11:39)
[2019-08-21] MEDS ORDERED: SUMA25TA9 PO (11:40)
[2019-08-21 11:44] VITALS: BP 90/44
[2019-08-21 16:01] VITALS: BP 96/62
[2019-08-21] MEDS: SODIUM CHLORIDE 0.9% 1,000 ML IV SCH (16:12)
[2019-08-21] MEDS: GABAPENTIN 300 MG CAPSULE PO SCH (20:04)
[2019-08-21 20:22] VITALS: BP 108/61
[2019-08-21 23:20] VITALS: BP 94/54
[2019-08-22 04:00] VITALS: BP 93/57
[2019-08-22 07:30] VITALS: BP 104/58
[2019-08-22] MEDS: DOCUSATE SODIUM 100 MG CAPSULE PO SCH (09:00)
[2019-08-22] MEDS: VIT E ACET/GLY/DIMETH/WATER 236 ML LOTION TP SCH (09:00)
[2019-08-22] MEDS: SULFAMETHOX/TRIMETH DS 800-160 MG/TABLET PO SCH (09:04)
[2019-08-22] MEDS: CIMETIDINE 400 MG TABLET PO SCH (09:05)
[2019-08-22] MEDS: MULTIVITAMINS WITH MINERALS, THERAPEUTIC TABLET PO SCH (09:05)
[2019-08-22] MEDS: HEPARIN SODIUM,PORCINE 5,000 UNITS/ML VIAL SQ SCH ×2 (09:05)
[2019-08-22 10:13] LABS: QUANTIFERON+, Nil Value 0.05 IU/mL; QUANTIFERON, TB GOLD PLUS Indeterminate (Negative)
== END 2019-08-22 10:45 | DRG 977 ==
LOC: EMS 14:34 → 6S 15:36
PROVIDERS: ADMIT Internal Medicine; ATTEND Internal Medicine
PROC: 3E0234Z Introduction of Serum, Toxoid and Vaccine into Muscle, Percutaneous Approach (ICD-10-PCS; 2019-08-02)
PROC: 3E02340 Introduction of Influenza Vaccine into Muscle, Percutaneous Approach (ICD-10-PCS; 2019-08-02)
PROC: 009U3ZX Drainage of Spinal Canal, Percutaneous Approach, Diagnostic (ICD-10-PCS; principal; 2019-08-12)
PROC: 3E0T3BZ Introduction of Anesthetic Agent into Peripheral Nerves and Plexi, Percutaneous Approach (ICD-10-PCS; 2019-08-12)
DX: B20 Human immunodeficiency virus [HIV] disease (principal); L50.9 Urticaria, unspecified; F15.90 Other stimulant use, unspecified, uncomplicated; D72.819 Decreased white blood cell count, unspecified; F17.210 Nicotine dependence, cigarettes, uncomplicated; G43.909 Migraine, unspecified, not intractable, without status migrainosus; G56.02 Carpal tunnel syndrome, left upper limb; G97.1 Other reaction to spinal and lumbar puncture; M54.9 Dorsalgia, unspecified; M79.632 Pain in left forearm; R79.89 Other specified abnormal findings of blood chemistry; L30.9 Dermatitis, unspecified; Y92.238 Other place in hospital as the place of occurrence of the external cause; N48.5 Ulcer of penis; Y84.4 Aspiration of fluid as the cause of abnormal reaction of the patient, or of later complication, without mention of misadventure at the time of the procedure; Z79.899 Other long term (current) drug therapy; Z91.14 Patient's other noncompliance with medication regimen; Z23 Encounter for immunization
CPT/HCPCS: 70553; 80074; 82945; 84132; 84157; 86038; 86171; 86361; 86403; 86480; 86592; 86593; 86738; 86780; 87015; 87040; 87045; 87177; 87206; 87491; 87536; 87591; 89051; 89055; 90686; 90732; A9585; J0561; J1644; J2405; J2540; J3301; J3490; J7030; J7060